=== PATIENT | female | born 1945 | race Caucasian/White ===

== ENCOUNTER 2017-08-04 15:28 | Emergency (ER) | payer MEDICARE ==
[~2017-08-04] VITALS: Ht 160 cm; Wt 81.6 kg
[2017-08-04] MEDS ORDERED: SEROQUEL25 MG PO (15:53)
[2017-08-04] MEDS ORDERED: LISINOPRIL2.5 MG PO (15:53)
--- NOTE | 2017-08-04 16:36 | Diagnostic Imaging Report ---
PROCEDURE: Frontal and lateral views of the chest. COMPARISON: None. INDICATIONS: FLULIKE SYMPTOMS, SOB FINDINGS: Lines/tubes: None. Lungs: The lungs are well inflated. Nonspecific basilar opacities likely represent scarring or atelectasis. There is no evidence of pneumonia or pulmonary edema. Pleura: There is no pleural effusion or pneumothorax. Heart and mediastinum: The heart and the mediastinum are normal. Bones: No acute bony abnormality. IMPRESSION: 1. No evidence of edema or infection. Dictated by: Aki Garcia M.D. on 08/04/2017 at 16:44 Electronically approved by: Aki Garcia M.D. on 08/04/2017 at 16:44
[2017-08-04 19:01] VITALS: BP 193/86
== END 2017-08-04 19:09 | disposition home or self-care (01) ==
LOC: ER 15:28
DX: J00 Acute nasopharyngitis [common cold] (principal); B97.89 Other viral agents as the cause of diseases classified elsewhere; I10 Essential (primary) hypertension
CPT/HCPCS: 71020; 87400; 99283

== ENCOUNTER 2018-09-03 14:50 | Emergency (ER) | payer MEDICARE ==
[~2018-09-03] VITALS: Ht 160 cm; Wt 81.6 kg
[~2018-09-03 14:50] MED LIST: LISINOPRIL2.5 MG PO; SEROQUEL25 MG PO
--- OUTSIDE RECORDS SUMMARY | 2018-09-03 14:53 | XMS REPORT ---
Author Author [facility] Address Unknown Phone Unavailable Care Team Providers [facility] [employer] Developer Name Role Phone Eric MANDUJANO Unavailable Unavailable Problems This patient has no known problems. Allergies, Adverse Reactions, Alerts This patient has no known allergies or adverse reactions. Medications This patient has no known medications. Results Test Description Test Time Test Comments Text Results Atomic Results Result Comments CHEST 2 VIEWS [place] [address] Patient Name: LESTER ESCAMILLA MR #: [id number] : 1945 Age/Sex: 72/F Req #: [id number] Adm Physician: Ordered by: RADHA MTZ FUR TANNER Report #: [id number] Location: ER Room/Bed: Procedure: [id number] DX/CHEST 2 VIEWS Exam Date: 08/04/17 Exam Time: 1618 REPORT STATUS: Signed PROCEDURE: Frontal and lateral views of the chest. COMPARISON: None. INDICATIONS: FLULIKE SYMPTOMS, SOB FINDINGS: Lines/tubes: None. Lungs: The lungs are well inflated. Nonspecific basilar opacities likely represent scarring or atelectasis. There is no evidence of pneumonia or pulmonary edema. Pleura: There is no pleural effusion or pneumothorax. Heart and mediastinum: The heart and the mediastinum are normal. Bones: No acute bony abnormality. IMPRESSION: 1. No evidence of edema or infection. Dictated by: Ludy Garcia M.D. on 08/04/2017 at 16:44 Electronically approved by: Ludy Garcia M.D. on 08/04/2017 at 16:44 Dictated By: LUDY GARCIA MD 43 Transcribed By: RODOLFO on 08/04/174 COPY TO: RADHA MTZ NP
[2018-09-03] MEDS ORDERED: KETOROLAC TROME10 MG PO (16:08)
[2018-09-03] MEDS ORDERED: DOXYCYCLINE HY100 MG PO (16:08)
[2018-09-03 16:33] VITALS: BP 117/70
== END 2018-09-03 16:34 | disposition home or self-care (01) ==
LOC: ER 14:50
DX: I80.8 Phlebitis and thrombophlebitis of other sites (principal)
CPT/HCPCS: 99282